=== PATIENT | male | born 1960 | race Caucasian/White ===

== ENCOUNTER 2018-11-06 19:16 | Emergency (ER) | payer OTHER ==
[~2018-11-06] VITALS: Ht 160 cm; Wt 68.0 kg
--- NOTE | 2018-11-06 19:16 | NUR ---
PT [facility]. TAKEN TO BED 1
[2018-11-06 19:20] VITALS: BP 167/104
[2018-11-06] MEDS ORDERED: MORPHINE SULFATE 4 MG/ML SYR IVP ONE (19:40)
[2018-11-06] MEDS ORDERED: NACL 0.9% 1,000 ML IV ONE ×2 (19:40→21:00)
--- NOTE | 2018-11-06 19:41 | NUR ---
Pt biba from home with complaints of epigastric abdominal pain accompanied with N/V/D since 1100 this morning. Pt reports having x1 episode of diarrhea, and x4 episodes of vomiting. Pt denies any vomiting in blood. No active vomiting noted. Abdomen soft, tender to palpation to epigastric area. Active bowel sounds x 4 quadrants. Denies s/s of UTI. AOX4, thai speaking clear speech. VSS. BS WELDING TECHNICIAN 222. IV established by EMS 20 gauge to left forearm WELDING TECHNICIAN. IV flushed, good blood return, flushed with 10 cc ns flush. at bedside. Pt appears uncomfortable d/t pain. Pt received Zofran 4mg ODT WELDING TECHNICIAN. Denies nausea at this time. Warm blanket provided.
[2018-11-06] MEDS ORDERED: ACETAMINOPHEN EXTRA STRENGTH 500 MG TAB PO ONE (19:45)
[2018-11-06 20:47] LABS: HEMATOCRIT 37.3 % (36-52); HEMOGLOBIN 12.4 g/dL (12.0-18.0); MEAN CORPUSCULAR HEMOGLOBIN 32 pg (27-31); MEAN CORPUSCULAR HGB CONC 33 g/dL (33-37); MEAN CORPUSCULAR VOLUME 96.1 fL (80-94); PLATELET COUNT (AUTO) 179 K/uL (140-450); RED BLOOD CELL COUNT(AUTO) 3.89 MIL/uL (4.20-6.10); RED CELL DISTRIBUTION WIDTH 14.2 % (11.6-13.7); WHITE BLOOD COUNT (AUTO) 20.9 K/uL (4.8-10.8)
[2018-11-06 20:54] LABS: ANION GAP 13.1 (8-16); CARBON DIOXIDE 23.4 mmol/L (21-32); CREATININE 1.5 mg/dL (0.7-1.3); POTASSIUM 3.5 mmol/L (3.5-5.1)
[2018-11-06 21:00] LABS: ALBUMIN 3.1 g/dL (3.4-5.0); TOTAL BILIRUBIN 3.1 mg/dL (0.0-1.0)
--- NOTE | 2018-11-06 21:04 | NUR ---
Pt resting comfortably at this time. NAD noted. Pending results at this time.
[2018-11-06 21:09] LABS: LYMPHOCYTES % (MANUAL) 2 % (20-46); MONOCYTES % (MANUAL) 4 % (5-12)
[2018-11-06] MEDS ORDERED: PIPERACILLIN/TAZOBACTAM 3.375 GM in DEXTROSE 5% 50 ML IV ONE (21:50)
[2018-11-06 21:53] LABS: APPEARANCE,URINE HAZY (CLEAR); BILIRUBIN,URINE 2+ (NEGATIVE); BLOOD, URINE TRACE-I (NEGATIVE); COLOR,URINE YELLOW (YELLOW); LEUKOCYTE ESTERASE ,URINE NEGATIVE (NEGATIVE); NITRITE, URINE NEGATIVE (NEGATIVE); UGLUCOSE 1+ (NEGATIVE)
[2018-11-06 22:08] LABS: RBC,URINE 0-5 (RARE) /HPF (0-5); WBC,URINE 0-5 (RARE) /HPF (0-5)
[2018-11-06] MEDS ORDERED: PIPERACILLIN/TAZOBACTAM 3.375 GM VIAL IV ONE (22:40)
[2018-11-06 23:12] VITALS: BP 100/68
--- NOTE | 2018-11-06 23:12 | NUR ---
Patient discharged with v/s stable. Written and verbal after care instructions given and explained. Patient verbalized understanding. Ambulatory with steady gait. All questions addressed prior to discharge. Advised to follow up with PMD.
--- NOTE | 2018-11-06 23:12 | NUR ---
IV removed, catheter intact and site benign. Applied folded 4x4 gauze and tape to stop bleeding.
== END 2018-11-06 23:12 | disposition home or self-care (01) ==
LOC: MED 19:16
DX: R74.0 Nonspecific elevation of levels of transaminase and lactic acid dehydrogenase [LDH] (principal); R50.9 Fever, unspecified; F10.10 Alcohol abuse, uncomplicated; I10 Essential (primary) hypertension; E11.9 Type 2 diabetes mellitus without complications; Z79.84 Long term (current) use of oral hypoglycemic drugs
CPT/HCPCS: 36415; 74176; 76705; 80053; 81001; 83605; 83690; 85025; 87040; 87086; 87804; 96361; 96365; 96375; 99284; J2270; J2543; J7030; J7060; Q0092